=== PATIENT | male | born 1930 | race Caucasian/White ===

== ENCOUNTER 2017-02-19 07:25 | Emergency (ER) | payer BC ==
[~2017-02-19] VITALS: Wt 95.0 kg
--- NOTE | 2017-02-19 07:39 | ERA ---
ER Documentation Chief Complaint Date/Time DATE: 02/19/17 TIME: 07:34 Chief Complaint SOB X 1 DAY WITH MILD CP HPI This is an 86-year-old man with a history of hypertension, coronary artery disease status post 2 stents in the RCA, end-stage renal disease on dialysis Monday/Monday/Monday, last dialysis was 2 days ago and was completed as scheduled, a recent right eye surgery, severe COPD on 2 L nasal cannula at baseline 24 hours a day who is presenting with shortness of breath and a transient episode of chest pain. The patient woke up this morning feeling significantly short of breath. He was having significant trouble breathing without his oxygen and started to panic. The patient reports a sharp electric type chest pain in the left chest that lasted approximately 1 second. The patient does not endorse any other chest pain prior or since. The patient reconnected his nasal cannula to his O2 tank, but it was empty. At that point, he called an ambulance. When the paramedics arrived, he was oxygenating at 78% on room air. They placed him on 4 L and his shortness of breath resolved. However, he only come up to the mid 80s. They placed him on a nonrebreather at that point. At this time, the patient has no other complaints. He denies any chest pain or shortness of breath at this time. He is still only able to speak in 3-4 word sentences, but this is his baseline. The patient denies feeling sick recently. The patient denies fever or chills. The patient has had no headache or vision changes. The patient denies lightheadedness or dizziness. The patient denies abdominal pain or changes to bowel movements or urination. The patient has had no focal deficits. The patient has had no weakness or numbness or tingling to the face or extremities. The patient has chronic mild lower extremity edema that is present today. ROS All systems reviewed and are negative except as per history of present illness. Medications Home Meds Active Scripts Levofloxacin* (Levaquin*) 750 Mg Tablet, 750 MG PO DAILY for 5 Days, TAB Prov:CARMELLA JOHNSON MD 02/19/17 Reported Medications Sevelamer Carbonate* (Renvela*) 800 Mg Tablet, 0.8 GM PO WITH MEALS, TAB 02/19/17 Mirtazapine* (Mirtazapine*) 30 Mg Tablet, 30 MG PO HS, TAB 02/19/17 Cinacalcet* (Sensipar*) 30 Mg Tab, 30 MG PO QID, TAB 02/19/17 Atorvastatin* (Atorvastatin*) 40 Mg Tablet, 40 MG PO QHS, #30 TAB 02/19/17 Tamsulosin Hcl* (Tamsulosin Hcl*) 0.4 Mg Cap.er.24h, 0.8 MG PO HS, CAP 02/19/17 Allergies Allergies: Coded Allergies: No Known Allergy (Unverified , 02/19/17) PMhx/Soc History of Surgery: Yes (Coronary stents, cataract surgery) Hx Respiratory Disorders: Yes (COPD) Hx Cardiac Disorders: Yes (HTN) Hx Psychiatric Problems: No Hx Miscellaneous Medical Probl: Yes (DIALYSIS ESRD) Hx Alcohol Use: No Hx Substance Use: No Hx Tobacco Use: No Smoking Status: Never smoker FmHx Family History: No diabetes Physical Exam Vitals Vital Signs Date Time Temp Pulse Resp B/P Pulse Ox O2 Delivery O2 Flow Rate FiO2 02/19/17 10:23 98.1 99 18 121/77 98 Room Air 02/19/17 07:35 Nasal Cannula 02/19/17 07:27 114 22 120/77 95 Physical Exam Const: No apparent distress, well-developed, well-nourished Head: Atraumatic Eyes: Normal Conjunctiva. Extraocular movements intact. ENT: Normal External Ears, Nose and Mouth. Neck: Full range of motion. ~ No meningismus. Resp: Bibasilar rales Cardio: Regular rhythm, tachycardia, no murmurs Abd: Soft, non tender, non distended. Normal bowel sounds Skin: No petechiae or rashes Back: No midline or flank tenderness Ext: No cyanosis. Bilateral lower extremity 1+ pitting edema. Neur: Awake and alert, oriented 4. Cranial nerves intact. No facial droop. Normal strength and sensation in all extremities. Coordination with finger to nose normal. Psych: Normal Mood and Affect Result Diagram: 02/19/1735 02/19/17 0735 Results 24 hrs Laboratory Tests Test 02/19/17 07:35 White Blood Count 7.510^3/ul Red Blood Count 2.9510^6/ul Hemoglobin 10.1g/dl Hematocrit 31.2% Mean Corpuscular Volume 105.8fl Mean Corpuscular Hemoglobin 34.2pg Mean Corpuscular Hemoglobin Concent 32.4g/dl Red Cell Distribution Width 16.4% Platelet Count 10858^3/UL Mean Platelet Volume 10.6fl Neutrophils % 81.4% Lymphocytes % 8.7% Monocytes % 7.9% Eosinophils % 0.7% Basophils % 0.5% Nucleated Red Blood Cells % 0.0/100WBC Neutrophils # 6.110^3/ul Lymphocytes # 0.710^3/ul Monocytes # 0.610^3/ul Eosinophils # 0.110^3/ul Basophils # 0.010^3/ul Nucleated Red Blood Cells # 0.010^3/ul Sodium Level 142mmol/L Potassium Level 4.6mmol/L Chloride Level 108mmol/L Carbon Dioxide Level 23mmol/L Anion Gap 16 Blood Urea Nitrogen 35mg/dl Creatinine 7.89mg/dl Glucose Level 107mg/dl Calcium Level 10.4mg/dl Troponin I 0.045ng/ml [facility] Patient's presentation warrants further investigation. The patient has known COPD on 2 L nasal cannula at baseline. The patient was hypoxic when off his baseline nasal cannula. The patient did arrive on facemask. He was placed on 2 L upon arrival and is currently oxygenating above 90. He feels completely back to his normal. The patient's quality of chest pain is atypical of a cardiac etiology. He does endorse feeling panicked without his oxygen, and he feels that that is what his chest pain was related to. I will complete a cardiac workup in the emergency department to evaluate for any possibility of acute cardiac pathology, but my suspicion is low. LABS The patient's blood work was obtained and reviewed. The patient seemed shows no leukocytosis or left shift. The patient is afebrile, and I do not suspect a systemic infection. The patient is mildly anemic today. This is likely related to his renal dysfunction, and does not require emergent treatment. The patient's platelet count is unremarkable. The patient's BMP shows a mildly elevated calcium that does not need to be emergently treated. The patient's BUN and creatinine are significantly elevated, but the patient does have end- stage renal disease and is on dialysis 3 days a week. He is due for dialysis tomorrow. He has no electrolyte abnormalities that would require emergent dialysis today. His troponin is within normal range for our facility. EKG EKG read by me: Rate/Rhythm: Regular rate and rhythm at a rate of 116 Intervals: Normal [place] and QTc. QRS prolonged mildly. [place]: Left shifted Impression: No ST or T-wave changes concerning for acute coronary syndrome. IMAGING CXR FINDINGS: The heart is moderately enlarged. The pulmonary vasculature are mildly prominent. The aorta demonstrates atherosclerotic calcifications. There is patchy consolidation seen in the right lower lung. There is mild retrocardiac opacity as well. There is no visible effusion or pneumothorax. Degenerative changes are seen within the thoracic spine. There is no acute osseous abnormality. IMPRESSION: Cardiomegaly is seen with possible mild vascular congestion. Bibasilar patchy opacities are seen with more pronounced consolidation of the right lower lung and this could represent pneumonia or localized edema. Electronically viewed and signed by .Dominick Salcedo MD, on 02/19/2017 08:26 TREATMENT/DISPOSITION While my suspicion is low, the patient's heart score is 5 for age, risk factors and an indeterminate troponin. The patient's symptoms had completely resolved once he was placed on oxygen. However, given the patient's significant history , I recommended admission. I discussed the risks and benefits of going home and I also discussed the heart score has a risk stratification study to and indicated that he was at moderate risk of having a heart attack in the next 30 days. The patient states that despite the risks he would like to leave AGAINST MEDICAL ADVICE. He has a primary care physician, a mortar mixer as well as a audio visual engineer that he can follow-up with very closely. He will call all of these specialties tomorrow to schedule appointments. The patient does have oxygen at home and does not feel that he will run out before he needs to follow- up. With respect to his shortness of breath and hypoxia, another possible etiology is pneumonia given his x-ray and clinical findings. I will send the patient home with a prescription for levofloxacin. The patient understands that if he changes his mind and wants to be reevaluated , that he may return at any time. Departure Diagnosis: Primary Impression: Shortness of breath Additional Impressions: Hypoxia Pneumonia Qualified Code: J18.9 - Pneumonia of both lower lobes due to infectious organism Condition: CARMELLA Aguilar MD Feb 19, 2017 07:39
[2017-02-19] MEDS ORDERED: TAMS0.4C2 PO (08:06)
[2017-02-19] MEDS ORDERED: ATOR40TA68 PO (08:07)
[2017-02-19] MEDS ORDERED: CNC30T PO (08:07)
[2017-02-19] MEDS ORDERED: MIRT30TA5 PO (08:08)
[2017-02-19] MEDS ORDERED: SEVE800T7 PO (08:09)
[2017-02-19 08:10] LABS: BASOPHILS % 0.5 % (0.0-2.0); EOSINOPHILS # 0.1 10^3/ul (0.0-0.5); EOSINOPHILS % 0.7 % (0.0-7.0); HEMATOCRIT 31.2 % (42.0-52.0); HEMOGLOBIN 10.1 g/dl (14.0-18.0); LYMPHOCYTES # 0.7 10^3/ul (0.8-2.9); LYMPHOCYTES % 8.7 % (15.0-51.0); MEAN CORPUSCULAR HEMOGLOBIN 34.2 pg (29.0-33.0); MEAN CORPUSCULAR HGB CONC 32.4 g/dl (32.0-37.0); MEAN CORPUSCULAR VOLUME 105.8 fl (82.0-101.0); MEAN PLATELET VOLUME 10.6 fl (7.4-10.4); MONOCYTE # 0.6 10^3/ul (0.3-0.9); MONOCYTES % 7.9 % (0.0-11.0); NEUTROPHIL # 6.1 10^3/ul (1.6-7.5); NEUTROPHILS % 81.4 % (39.0-77.0); PLATELET COUNT 119 10^3/UL (140-415); RED BLOOD COUNT 2.95 10^6/ul (4.70-6.10); RED CELL DISTRIBUTION WIDTH 16.4 % (11.5-14.5); WHITE BLOOD COUNT 7.5 10^3/ul (4.8-10.8)
--- NOTE | 2017-02-19 08:26 | RADRPT ---
PROCEDURE: XR Chest. CLINICAL INDICATION: chest pain TECHNIQUE: Single AP view of the chest were obtained COMPARISON: None FINDINGS: The heart is moderately enlarged. The pulmonary vasculature are mildly prominent. The aorta demonst rates atherosclerotic calcifications. There is patchy consolidation seen in the right lower lung. T here is mild retrocardiac opacity as well. There is no visible effusion or pneumothorax. Degenerati ve changes are seen within the thoracic spine. There is no acute osseous abnormality. IMPRESSION: Cardiomegaly is seen with possible mild vascular congestion. Bibasilar patchy opacities are seen with more pronounced consolidation of the right lower lung and t his could represent pneumonia or localized edema. RPTAT: AA .Dominick Salcedo MD, Date Time Electronically viewed and signed by .Dominick Salcedo MD, MD on 02/19/2017 08:26 .Reji/
[2017-02-19 08:44] LABS: CALCIUM 10.4 mg/dl (8.4-10.2); CREATININE 7.89 mg/dl (0.61-1.24); POTASSIUM 4.6 mmol/L (3.5-5.1)
[2017-02-19 08:56] LABS: TROPONIN-I 0.045 ng/ml (0.00-0.12)
[2017-02-19] MEDS ORDERED: LEVO750T25 PO (10:09)
[2017-02-19 10:23] VITALS: BP 121/77; PULSE 99; RESP 18; TEMP 98.1
== END 2017-02-19 10:32 | disposition home or self-care (01) ==
LOC: E/R 07:25
DX: J18.9 Pneumonia, unspecified organism (principal); I25.10 Atherosclerotic heart disease of native coronary artery without angina pectoris; I12.0 Hypertensive chronic kidney disease with stage 5 chronic kidney disease or end stage renal disease; N18.6 End stage renal disease; J44.9 Chronic obstructive pulmonary disease, unspecified; Z98.61 Coronary angioplasty status; Z99.2 Dependence on renal dialysis
CPT/HCPCS: 36415; 71010; 80048; 84484; 85025; 93005